=== PATIENT | female | born 1955 | race Caucasian/White ===

== ENCOUNTER 2017-12-11 14:28 | Inpatient (IN) | payer OTHER, MEDICARE ==
[2017-12-11] VITALS (9 sets, daily range): BP systolic 97–148; BP diastolic 40–79
[~2017-12-11] VITALS: Ht 165.1 cm; Wt 65.4 kg
[2017-12-11] MEDS ORDERED: SODIUM CHLORIDE FLUSH 10ML SYR IVF ONE (15:00)
[2017-12-11 15:12] LABS: ALANINE AMINOTRANSFERASE 17 U/L (12-78); ALBUMIN 3.5 g/dL (3.4-5.0); ANION GAP 10 mmol/L (5-15); BASOPHILS # (AUTO) 0.08 x10^3/uL (0-0.1); BASOPHILS % (AUTO) 1 % (0-1); CALCIUM 8.7 mg/dL (8.5-10.1); CHLORIDE 102 mmol/L (98-107); CREATININE 2.31 mg/dL (0.55-1.02); EOSINOPHILS # (AUTO) 0.02 x10^3/uL (0-0.4); EOSINOPHILS % (AUTO) 0 % (1-7); LYMPHOCYTES # (AUTO) 1.45 x10^3/uL (1-3.4); LYMPHOCYTES % (AUTO) 21 % (22-44); MD MORPH REVIEW ONLY; MEAN CORPUSCULAR HEMOGLOBIN 22.3 pg (27.0-34.8); MEAN CORPUSCULAR VOLUME 71.9 fL (80-100); MEAN PLATELET VOLUME 7.9 fL (7.4-10.4); MONOCYTES # (AUTO) 0.38 x10^3/uL (0.2-0.8); MONOCYTES % (AUTO) 6 % (2-9); NEUTROPHILS # (AUTO) 4.98 x10^3/uL (1.8-6.8); NEUTROPHILS % (AUTO) 72 % (42-75); PLATELET COUNT 390 x10^3/uL (130-400); RED BLOOD COUNT 2.99 x10^6/uL (3.82-5.3); RED CELL DISTRIBUTION WIDTH 19.1 % (9.6-15.2)
[2017-12-11 15:16] LABS: ALKALINE PHOSPHATASE 132 U/L (45-117); BILIRUBIN,TOTAL 0.8 mg/dL (0.2-1.0); TOTAL PROTEIN 7.1 g/dL (6.4-8.2); TROPONIN I 0.026 ng/mL (0.000-0.045)
[2017-12-11 15:18] LABS: HEMOGRAM NOTE RECHECKED
[2017-12-11] MEDS ORDERED: ALBUTEROL SULFATE 2.5 MG/3 ML NPPB SCH (15:30)
[2017-12-11 15:33] LABS: ANISOCYTOSIS 1+; HYPOCHROMIA 1+; MICROCYTOSIS 1+
[2017-12-11 15:34] LABS: POLYCHROMASIA 1+
[2017-12-11 15:36] LABS: <PLATELET ESTIMATE> ADEQUATE; LARGE PLATELETS 1+; OVALOCYTES 1+
[2017-12-11] MEDS ORDERED: INSU300I SQ (15:41)
[2017-12-11] MEDS ORDERED: FLUT100B INH (15:41)
[2017-12-11] MEDS ORDERED: ASPI-515 PO (15:41)
[2017-12-11] MEDS ORDERED: FURO-92 PO (15:41)
[2017-12-11] MEDS ORDERED: POLY17PO5 PO (15:41)
[2017-12-11] MEDS ORDERED: INSU100C SQ-INSULIN (15:41)
[2017-12-11] MEDS ORDERED: UMEC1DIS INH (15:41)
[2017-12-11] MEDS ORDERED: POTA10CA PO (15:41)
[2017-12-11] MEDS: ALBUTEROL/IPRATROPIUM 2.5MG/0.5MG, 3 ML HHN SCH ×2 (16:00→22:00)
[2017-12-11] MEDS ORDERED: LABETALOL 5MG/ML, 20ML IVPush PRN (16:00)
[2017-12-11] MEDS: NICOTINE 7 MG/24 HR PATCH.TD24 TD SCH (16:00)
[2017-12-11] MEDS ORDERED: ALBUTEROL SULFATE 2.5 MG/3 ML NPPB PRN (16:00)
[2017-12-11] MEDS: GUAIFENESIN 200 MG TABLET PO SCH ×2 (16:00→20:29)
[2017-12-11] MEDS ORDERED: GLUCAGON 1 MG IM PRN (16:30)
[2017-12-11] MEDS ORDERED: DEXTROSE 4 GM TAB.CHEW PO PRN (16:30)
[2017-12-11 16:31] LABS: INTERNATIONAL NORMALIZED RATIO 1.06 (0.93-1.1)
[2017-12-11 16:48] LABS: T4 (THYROXINE) 8.4 mcg/dL (4.8-13.9)
[2017-12-11 17:23] LABS: FREE T4 (FREE THYROXINE) 1.58 ng/dL (0.76-1.46)
[2017-12-11 17:35] LABS: HEMOGLOBIN A1C 7.8 % (4.2-6.3)
[2017-12-11] MEDS: FUROSEMIDE 40 MG/4 ML IV SCH (17:41)
[2017-12-11 19:50] LABS: TROPONIN I 0.025 ng/mL (0.000-0.045)
[2017-12-11] MEDS: PANTOPROZOLE 40MG TABLET PO SCH (20:29)
[2017-12-11 21:21] LABS: CLOSTRIDIUM DIFFICILE ANTIGEN NEGATIVE; CLOSTRIDIUM DIFFICILE TOXIN NEGATIVE (Negative)
[2017-12-11] MEDS: SODIUM CHLORIDE FLUSH 10ML SYR IVF SCH (21:59)
[2017-12-11] MEDS: INSULIN LISPRO 100 UNITS/ML, PEN SQ-INSULIN SCH (22:00)
[2017-12-11] MEDS: FLUTICASONE NASAL SPRAY 16GM NAS SCH (22:01)
[2017-12-12 00:25] VITALS: BP 120/65
[2017-12-12 02:06] LABS: MEAN CORPUSCULAR HEMOGLOBIN 25.5 pg (27.0-34.8); MEAN CORPUSCULAR HGB CONC 32.5 g/dL (32.4-35.8); MEAN CORPUSCULAR VOLUME 78.4 fL (80-100); MEAN PLATELET VOLUME 7.9 fL (7.4-10.4); PLATELET COUNT 311 x10^3/uL (130-400); RED BLOOD COUNT 3.79 x10^6/uL (3.82-5.3); RED CELL DISTRIBUTION WIDTH 21.1 % (9.6-15.2)
[2017-12-12 02:14] LABS: ALANINE AMINOTRANSFERASE 16 U/L (12-78); ALBUMIN 3.3 g/dL (3.4-5.0); ANION GAP 10 mmol/L (5-15); CALCIUM 8.4 mg/dL (8.5-10.1); CHLORIDE 106 mmol/L (98-107); CREATININE 2.24 mg/dL (0.55-1.02)
[2017-12-12 02:16] LABS: ALKALINE PHOSPHATASE 113 U/L (45-117); BILIRUBIN,TOTAL 1.7 mg/dL (0.2-1.0); TOTAL PROTEIN 6.5 g/dL (6.4-8.2)
[2017-12-12 02:30] LABS: BASOPHILS # (AUTO) 0.01 x10^3/uL (0-0.1); BASOPHILS % (AUTO) 0 % (0-1); EOSINOPHILS % (AUTO) 0 % (1-7); LYMPHOCYTES # (AUTO) 1.08 x10^3/uL (1-3.4); LYMPHOCYTES % (AUTO) 13 % (22-44); MD SCAN; MONOCYTES # (AUTO) 0.64 x10^3/uL (0.2-0.8); MONOCYTES % (AUTO) 8 % (2-9); NEUTROPHILS # (AUTO) 6.57 x10^3/uL (1.8-6.8); NEUTROPHILS % (AUTO) 79 % (42-75)
[2017-12-12] MEDS: ALBUTEROL/IPRATROPIUM 2.5MG/0.5MG, 3 ML HHN SCH ×4 (04:00→21:00)
[2017-12-12 05:54] LABS: MICROSCOPIC AUTO
[2017-12-12] MEDS: GUAIFENESIN 200 MG TABLET PO SCH ×4 (06:00→20:41)
[2017-12-12 06:36] VITALS: BP 115/61
[2017-12-12] MEDS: INSULIN LISPRO 100 UNITS/ML, PEN SQ-INSULIN SCH ×4 (07:00→20:29)
[2017-12-12] MEDS: DEXTROSE 50%, 50ML SYRINGE IVPush PRN ×3 (07:50→23:15)
[2017-12-12] MEDS: PANTOPROZOLE 40MG TABLET PO SCH ×2 (08:52→20:41)
[2017-12-12] MEDS: SODIUM CHLORIDE FLUSH 10ML SYR IVF SCH ×2 (09:00→20:43)
[2017-12-12] MEDS: FUROSEMIDE 40 MG/4 ML IV SCH ×2 (09:08→17:09)
[2017-12-12] MEDS: FLUTICASONE NASAL SPRAY 16GM NAS SCH ×2 (09:09→20:42)
[2017-12-12 09:24] LABS: % IRON SATURATION 49 % (20-55); IRON LEVEL 210 mcg/dL (50-170); TOTAL IRON BINDING CAPACITY 429 mcg/dL (250-450)
[2017-12-12 12:42] VITALS: BP 125/63
[2017-12-12] MEDS: NICOTINE 7 MG/24 HR PATCH.TD24 TD SCH (16:25)
[2017-12-12] MEDS ORDERED: GOLYTELY 4,000ML ORAL.SOL PO ONE (17:00)
[2017-12-12 17:54] VITALS: BP 134/73
[2017-12-12 18:27] LABS: % IRON SATURATION 4 % (20-55); IRON LEVEL 17 mcg/dL (50-170); TOTAL IRON BINDING CAPACITY 469 mcg/dL (250-450)
[2017-12-12 18:56] VITALS: BP 137/56
[2017-12-13 01:26] VITALS: BP 121/69
[2017-12-13] MEDS: ONDANSETRON 2MG/ML, 2ML IVPush PRN ×2 (01:44→16:31)
[2017-12-13] MEDS: DEXTROSE 50%, 50ML SYRINGE IVPush PRN (02:40)
[2017-12-13] MEDS: ALBUTEROL/IPRATROPIUM 2.5MG/0.5MG, 3 ML HHN SCH ×4 (03:19→20:35)
[2017-12-13] MEDS: GUAIFENESIN 200 MG TABLET PO SCH ×4 (05:37→20:10)
[2017-12-13 06:45] VITALS: BP 122/71
[2017-12-13] MEDS: INSULIN LISPRO 100 UNITS/ML, PEN SQ-INSULIN SCH ×4 (07:37→21:25)
[2017-12-13 07:54] VITALS: BP 124/62
[2017-12-13] MEDS ORDERED: IRON SUCROSE COMPLEX 100MG/5ML ONE (07:57)
[2017-12-13] MEDS: PANTOPROZOLE 40MG TABLET PO SCH ×2 (08:00→20:10)
[2017-12-13] MEDS: SODIUM CHLORIDE FLUSH 10ML SYR IVF SCH ×2 (08:01→21:26)
[2017-12-13] MEDS: FUROSEMIDE 40 MG/4 ML IV SCH ×2 (08:01→16:44)
[2017-12-13] MEDS: D5%-0.45% NACL 1,000 ML IV SCH (08:04)
[2017-12-13] MEDS: IRON SUCROSE COMPLEX 100MG/5ML IV SCH (08:05)
[2017-12-13 08:57] LABS: ANION GAP 11 mmol/L (5-15); CALCIUM 8.5 mg/dL (8.5-10.1); CHLORIDE 105 mmol/L (98-107); CREATININE 1.89 mg/dL (0.55-1.02)
[2017-12-13] MEDS: FLUTICASONE NASAL SPRAY 16GM NAS SCH ×2 (11:00→20:11)
[2017-12-13 12:45] VITALS: BP 112/62
[2017-12-13] MEDS ORDERED: PROPOFOL 10 MG/ML, 20ML ONE (13:51)
[2017-12-13] MEDS ORDERED: ALBUTEROL/IPRATROPIUM 2.5MG/0.5MG, 3 ML ONE (14:52)
[2017-12-13] MEDS ORDERED: FENTANYL PF 100 MCG/2ML IV PRN (15:00)
[2017-12-13] MEDS ORDERED: ALBUTEROL/IPRATROPIUM 2.5MG/0.5MG, 3 ML NPPB PRN (15:00)
[2017-12-13] MEDS ORDERED: ONDANSETRON 2MG/ML, 2ML IV PRN (15:00)
[2017-12-13] MEDS: NICOTINE 7 MG/24 HR PATCH.TD24 TD SCH (16:33)
[2017-12-13 19:16] VITALS: BP 103/59
[2017-12-14] MEDS: ONDANSETRON 2MG/ML, 2ML IVPush PRN (00:28)
[2017-12-14 01:49] VITALS: BP 110/65
[2017-12-14] MEDS: ALBUTEROL/IPRATROPIUM 2.5MG/0.5MG, 3 ML HHN SCH ×5 (04:00→19:00)
[2017-12-14] MEDS: D5%-0.45% NACL 1,000 ML IV SCH (04:00)
[2017-12-14 05:04] LABS: ANION GAP 11 mmol/L (5-15); CALCIUM 8.5 mg/dL (8.5-10.1); CHLORIDE 104 mmol/L (98-107); CREATININE 2.26 mg/dL (0.55-1.02)
[2017-12-14 05:13] LABS: MEAN CORPUSCULAR HEMOGLOBIN 25.3 pg (27.0-34.8); MEAN CORPUSCULAR HGB CONC 32.3 g/dL (32.4-35.8); MEAN CORPUSCULAR VOLUME 78.3 fL (80-100); MEAN PLATELET VOLUME 8.4 fL (7.4-10.4); PLATELET COUNT 251 x10^3/uL (130-400); RED BLOOD COUNT 3.47 x10^6/uL (3.82-5.3); RED CELL DISTRIBUTION WIDTH 22.3 % (9.6-15.2)
[2017-12-14] MEDS: GUAIFENESIN 200 MG TABLET PO SCH ×4 (05:45→21:28)
[2017-12-14 05:52] LABS: BASOPHILS # (AUTO) 0.03 x10^3/uL (0-0.1); BASOPHILS % (AUTO) 0 % (0-1); EOSINOPHILS % (AUTO) 0 % (1-7); LYMPHOCYTES # (AUTO) 0.52 x10^3/uL (1-3.4); LYMPHOCYTES % (AUTO) 6 % (22-44); MD SCAN; MONOCYTES # (AUTO) 0.45 x10^3/uL (0.2-0.8); MONOCYTES % (AUTO) 5 % (2-9); NEUTROPHILS # (AUTO) 7.38 x10^3/uL (1.8-6.8); NEUTROPHILS % (AUTO) 88 % (42-75)
[2017-12-14] MEDS: INSULIN LISPRO 100 UNITS/ML, PEN SQ-INSULIN SCH ×4 (07:00→21:28)
[2017-12-14 08:02] VITALS: BP 114/65
[2017-12-14] MEDS: PANTOPROZOLE 40MG TABLET PO SCH ×2 (08:09→21:28)
[2017-12-14] MEDS: POTASSIUM CHLORIDE 20 MEQ TAB.ER.PRT PO SCH ×2 (08:09→16:24)
[2017-12-14] MEDS: SODIUM CHLORIDE FLUSH 10ML SYR IVF SCH ×2 (08:10→21:28)
[2017-12-14] MEDS: IRON SUCROSE COMPLEX 100MG/5ML IV SCH (08:10)
[2017-12-14] MEDS: FUROSEMIDE 40 MG/4 ML IV SCH (08:10)
[2017-12-14] MEDS: FLUTICASONE NASAL SPRAY 16GM NAS SCH ×2 (08:10→21:27)
[2017-12-14 14:39] VITALS: BP 109/69
[2017-12-14] MEDS: NICOTINE 7 MG/24 HR PATCH.TD24 TD SCH (16:00)
[2017-12-14 20:09] VITALS: BP 110/69
[2017-12-15 02:22] VITALS: BP 117/67
[2017-12-15] MEDS: ALBUTEROL/IPRATROPIUM 2.5MG/0.5MG, 3 ML HHN SCH ×3 (03:28→21:18)
[2017-12-15 06:11] LABS: MEAN CORPUSCULAR HEMOGLOBIN 25.5 pg (27.0-34.8); MEAN CORPUSCULAR HGB CONC 31.7 g/dL (32.4-35.8); MEAN CORPUSCULAR VOLUME 80.3 fL (80-100); MEAN PLATELET VOLUME 8.6 fL (7.4-10.4); PLATELET COUNT 241 x10^3/uL (130-400); RED BLOOD COUNT 3.69 x10^6/uL (3.82-5.3); RED CELL DISTRIBUTION WIDTH 23.5 % (9.6-15.2)
[2017-12-15] MEDS: GUAIFENESIN 200 MG TABLET PO SCH ×4 (06:11→21:42)
[2017-12-15 06:20] LABS: CHLORIDE 102 mmol/L (98-107)
[2017-12-15 06:25] LABS: ALANINE AMINOTRANSFERASE 23 U/L (12-78); ALBUMIN 3.3 g/dL (3.4-5.0); ALKALINE PHOSPHATASE 130 U/L (45-117); ANION GAP 8 mmol/L (5-15); BILIRUBIN,TOTAL 1.1 mg/dL (0.2-1.0); CALCIUM 8.9 mg/dL (8.5-10.1); CREATINE KINASE, TOTAL 109 U/L (26-192); CREATININE 2.94 mg/dL (0.55-1.02); TOTAL PROTEIN 6.6 g/dL (6.4-8.2)
[2017-12-15 07:18] LABS: BASOPHILS # (AUTO) 0.01 x10^3/uL (0-0.1); BASOPHILS % (AUTO) 0 % (0-1); EOSINOPHILS # (AUTO) 0.02 x10^3/uL (0-0.4); EOSINOPHILS % (AUTO) 0 % (1-7); LYMPHOCYTES # (AUTO) 0.69 x10^3/uL (1-3.4); LYMPHOCYTES % (AUTO) 7 % (22-44); MD MORPH REVIEW ONLY; MONOCYTES % (AUTO) 4 % (2-9); NEUTROPHILS # (AUTO) 9.25 x10^3/uL (1.8-6.8); NEUTROPHILS % (AUTO) 89 % (42-75)
[2017-12-15 07:25] LABS: ANISOCYTOSIS 2+; MICROCYTOSIS 1+
[2017-12-15 07:26] LABS: <PLATELET ESTIMATE> ADEQUATE; <PLT MORPHOLOGY> NORMAL PLT MORPH; HYPOCHROMIA 1+; OVALOCYTES 1+; POLYCHROMASIA 1+
[2017-12-15 07:40] VITALS: BP 113/63
[2017-12-15 08:38] LABS: MICROSCOPIC INDICATED
[2017-12-15] MEDS: SODIUM CHLORIDE FLUSH 10ML SYR IVF SCH ×2 (09:00→21:42)
[2017-12-15] MEDS: INSULIN LISPRO 100 UNITS/ML, PEN SQ-INSULIN SCH ×4 (09:05→21:43)
[2017-12-15] MEDS: PANTOPROZOLE 40MG TABLET PO SCH ×2 (09:05→21:42)
[2017-12-15] MEDS: IRON SUCROSE COMPLEX 100MG/5ML IV SCH (09:05)
[2017-12-15] MEDS: FLUTICASONE NASAL SPRAY 16GM NAS SCH ×2 (09:05→21:42)
[2017-12-15] MEDS: NICOTINE 7 MG/24 HR PATCH.TD24 TD SCH (12:10)
[2017-12-15 14:14] VITALS: BP 116/70
[2017-12-15 15:23] VITALS: BP 123/70
[2017-12-15 19:45] VITALS: BP 113/69
[2017-12-16 01:30] VITALS: BP 141/67
[2017-12-16] MEDS: ONDANSETRON 2MG/ML, 2ML IVPush PRN (01:54)
[2017-12-16] MEDS: ALBUTEROL/IPRATROPIUM 2.5MG/0.5MG, 3 ML HHN SCH ×4 (03:24→22:00)
[2017-12-16] MEDS: GUAIFENESIN 200 MG TABLET PO SCH ×4 (06:30→20:10)
[2017-12-16 08:44] LABS: ALBUMIN 3.2 g/dL (3.4-5.0); ANION GAP 14 mmol/L (5-15); CALCIUM 8.8 mg/dL (8.5-10.1); CHLORIDE 101 mmol/L (98-107); CREATININE 2.88 mg/dL (0.55-1.02)
[2017-12-16] MEDS: SODIUM CHLORIDE FLUSH 10ML SYR IVF SCH ×2 (09:00→20:11)
[2017-12-16 09:20] VITALS: BP 117/69
[2017-12-16] MEDS: PANTOPROZOLE 40MG TABLET PO SCH ×2 (09:27→20:10)
[2017-12-16] MEDS: IRON SUCROSE COMPLEX 100MG/5ML IV SCH (09:27)
[2017-12-16] MEDS: FLUTICASONE NASAL SPRAY 16GM NAS SCH ×3 (09:29→20:15)
[2017-12-16 13:10] VITALS: BP 136/77
[2017-12-16] MEDS: INSULIN LISPRO 100 UNITS/ML, PEN SQ-INSULIN SCH ×3 (14:14→20:02)
[2017-12-16] MEDS: NICOTINE 7 MG/24 HR PATCH.TD24 TD SCH (17:39)
[2017-12-16 20:25] VITALS: BP 138/77
[2017-12-17] MEDS: INSULIN LISPRO 100 UNITS/ML, PEN SQ-INSULIN SCH ×4 (02:39→20:21)
[2017-12-17] MEDS: ALBUTEROL/IPRATROPIUM 2.5MG/0.5MG, 3 ML HHN SCH ×4 (03:05→21:13)
[2017-12-17 03:45] VITALS: BP 128/76
[2017-12-17 05:06] LABS: MEAN CORPUSCULAR HEMOGLOBIN 26.1 pg (27.0-34.8); MEAN CORPUSCULAR HGB CONC 32.2 g/dL (32.4-35.8); MEAN CORPUSCULAR VOLUME 81.1 fL (80-100); MEAN PLATELET VOLUME 8.8 fL (7.4-10.4); PLATELET COUNT 226 x10^3/uL (130-400); RED BLOOD COUNT 3.69 x10^6/uL (3.82-5.3); RED CELL DISTRIBUTION WIDTH 24.7 % (9.6-15.2)
[2017-12-17 05:16] LABS: ALBUMIN 3.3 g/dL (3.4-5.0); ANION GAP 9 mmol/L (5-15); CALCIUM 8.7 mg/dL (8.5-10.1); CHLORIDE 100 mmol/L (98-107)
[2017-12-17 05:21] LABS: ALANINE AMINOTRANSFERASE 30 U/L (12-78); ALKALINE PHOSPHATASE 145 U/L (45-117); BILIRUBIN,TOTAL 0.9 mg/dL (0.2-1.0); CREATININE 2.59 mg/dL (0.55-1.02); TOTAL PROTEIN 6.6 g/dL (6.4-8.2)
[2017-12-17 05:46] LABS: BASOPHILS % (AUTO) 0 % (0-1); EOSINOPHILS # (AUTO) 0.02 x10^3/uL (0-0.4); EOSINOPHILS % (AUTO) 0 % (1-7); LYMPHOCYTES # (AUTO) 0.67 x10^3/uL (1-3.4); LYMPHOCYTES % (AUTO) 7 % (22-44); MD SCAN; MONOCYTES # (AUTO) 0.49 x10^3/uL (0.2-0.8); MONOCYTES % (AUTO) 5 % (2-9); NEUTROPHILS # (AUTO) 7.89 x10^3/uL (1.8-6.8); NEUTROPHILS % (AUTO) 87 % (42-75)
[2017-12-17] MEDS: GUAIFENESIN 200 MG TABLET PO SCH ×4 (05:59→20:14)
[2017-12-17 07:53] VITALS: BP 121/62
[2017-12-17] MEDS: SODIUM CHLORIDE FLUSH 10ML SYR IVF SCH ×2 (08:43→20:23)
[2017-12-17] MEDS: IRON SUCROSE COMPLEX 100MG/5ML IV SCH (08:43)
[2017-12-17] MEDS: FLUTICASONE NASAL SPRAY 16GM NAS SCH ×2 (08:43→20:15)
[2017-12-17] MEDS: PANTOPROZOLE 40MG TABLET PO SCH ×2 (08:44→20:14)
[2017-12-17] MEDS: ONDANSETRON 2MG/ML, 2ML IVPush PRN ×2 (11:40→17:35)
[2017-12-17 14:28] VITALS: BP 124/72
[2017-12-17] MEDS: NICOTINE 7 MG/24 HR PATCH.TD24 TD SCH (16:00)
[2017-12-17 21:07] VITALS: BP 117/70
[2017-12-18 01:16] VITALS: BP 104/66
[2017-12-18] MEDS: ONDANSETRON 2MG/ML, 2ML IVPush PRN ×2 (02:39→08:34)
[2017-12-18] MEDS: ALBUTEROL/IPRATROPIUM 2.5MG/0.5MG, 3 ML HHN SCH ×3 (03:24→19:06)
[2017-12-18 05:08] LABS: MEAN CORPUSCULAR HEMOGLOBIN 26.2 pg (27.0-34.8); MEAN CORPUSCULAR HGB CONC 31.7 g/dL (32.4-35.8); MEAN CORPUSCULAR VOLUME 82.7 fL (80-100); MEAN PLATELET VOLUME 8.6 fL (7.4-10.4); PLATELET COUNT 205 x10^3/uL (130-400); RED BLOOD COUNT 3.58 x10^6/uL (3.82-5.3); RED CELL DISTRIBUTION WIDTH 24.4 % (9.6-15.2)
[2017-12-18 05:19] LABS: ALBUMIN 3.1 g/dL (3.4-5.0); ANION GAP 9 mmol/L (5-15); CALCIUM 8.7 mg/dL (8.5-10.1); CHLORIDE 103 mmol/L (98-107); CREATININE 2.72 mg/dL (0.55-1.02)
[2017-12-18 05:55] LABS: BASOPHILS # (AUTO) 0.02 x10^3/uL (0-0.1); BASOPHILS % (AUTO) 0 % (0-1); EOSINOPHILS # (AUTO) 0.03 x10^3/uL (0-0.4); EOSINOPHILS % (AUTO) 0 % (1-7); LYMPHOCYTES % (AUTO) 11 % (22-44); MD SCAN; MONOCYTES # (AUTO) 0.48 x10^3/uL (0.2-0.8); MONOCYTES % (AUTO) 6 % (2-9); NEUTROPHILS # (AUTO) 6.48 x10^3/uL (1.8-6.8); NEUTROPHILS % (AUTO) 82 % (42-75)
[2017-12-18] MEDS: GUAIFENESIN 200 MG TABLET PO SCH ×4 (06:04→21:07)
[2017-12-18] MEDS: INSULIN LISPRO 100 UNITS/ML, PEN SQ-INSULIN SCH ×4 (07:00→21:21)
[2017-12-18 07:56] VITALS: BP 98/59
[2017-12-18] MEDS: FLUTICASONE NASAL SPRAY 16GM NAS SCH ×2 (08:33→21:07)
[2017-12-18] MEDS: IRON SUCROSE COMPLEX 100MG/5ML IV SCH (08:33)
[2017-12-18] MEDS: PANTOPROZOLE 40MG TABLET PO SCH (08:33)
[2017-12-18] MEDS: SODIUM CHLORIDE FLUSH 10ML SYR IVF SCH ×2 (08:34→21:08)
[2017-12-18] MEDS ORDERED: ALBUTEROL/IPRATROPIUM 2.5MG/0.5MG, 3 ML HHN PRN (12:00)
[2017-12-18 13:47] VITALS: BP 105/63
[2017-12-18] MEDS: NICOTINE 7 MG/24 HR PATCH.TD24 TD SCH (16:00)
[2017-12-18] MEDS ORDERED: ALBUTEROL/IPRATROPIUM 2.5MG/0.5MG, 3 ML ONE (18:04)
[2017-12-18 21:56] VITALS: BP 109/61
[2017-12-19 01:16] VITALS: BP 114/70
[2017-12-19] MEDS: GUAIFENESIN 200 MG TABLET PO SCH ×4 (05:28→20:43)
[2017-12-19 08:00] VITALS: BP 137/74
[2017-12-19 08:00] LABS: MEAN CORPUSCULAR HGB CONC 31.6 g/dL (32.4-35.8); MEAN CORPUSCULAR VOLUME 82.1 fL (80-100); MEAN PLATELET VOLUME 8.6 fL (7.4-10.4); PLATELET COUNT 212 x10^3/uL (130-400); RED BLOOD COUNT 3.81 x10^6/uL (3.82-5.3)
[2017-12-19 08:12] LABS: ALBUMIN 3.3 g/dL (3.4-5.0); ANION GAP 12 mmol/L (5-15); CALCIUM 8.7 mg/dL (8.5-10.1); CHLORIDE 103 mmol/L (98-107); CREATININE 2.69 mg/dL (0.55-1.02)
[2017-12-19 08:32] LABS: BASOPHILS # (AUTO) 0.09 x10^3/uL (0-0.1); BASOPHILS % (AUTO) 1 % (0-1); EOSINOPHILS % (AUTO) 0 % (1-7); LYMPHOCYTES # (AUTO) 1.06 x10^3/uL (1-3.4); LYMPHOCYTES % (AUTO) 14 % (22-44); MD SCAN; MONOCYTES # (AUTO) 0.52 x10^3/uL (0.2-0.8); MONOCYTES % (AUTO) 7 % (2-9); NEUTROPHILS % (AUTO) 79 % (42-75)
[2017-12-19] MEDS: SODIUM CHLORIDE FLUSH 10ML SYR IVF SCH ×2 (08:32→20:47)
[2017-12-19] MEDS: FLUTICASONE NASAL SPRAY 16GM NAS SCH ×2 (08:32→20:44)
[2017-12-19] MEDS: INSULIN LISPRO 100 UNITS/ML, PEN SQ-INSULIN SCH ×4 (08:32→20:43)
[2017-12-19 08:33] LABS: RED CELL DISTRIBUTION WIDTH 26.6 % (9.6-15.2)
[2017-12-19] MEDS: PANTOPROZOLE 40MG TABLET PO SCH (08:33)
[2017-12-19] MEDS: INSULIN GLARGINE 100 UNITS/ML, PEN SQ-INSULIN SCH (08:33)
[2017-12-19] MEDS: ALBUTEROL/IPRATROPIUM 2.5MG/0.5MG, 3 ML HHN SCH ×2 (09:10→20:59)
[2017-12-19] MEDS: IRON SUCROSE COMPLEX 100MG/5ML IV SCH (12:53)
[2017-12-19 13:33] VITALS: BP 115/65
[2017-12-19] MEDS: NICOTINE 7 MG/24 HR PATCH.TD24 TD SCH (16:00)
[2017-12-19] MEDS ORDERED: SODIUM BICARB 8.4%,50ML SYR. 150 MEQ in DEXTROSE 5% 1,000 ML IV SCH (16:24)
[2017-12-19 20:23] VITALS: BP 117/77
[2017-12-20 01:03] VITALS: BP 125/67
[2017-12-20 05:18] LABS: MEAN CORPUSCULAR HEMOGLOBIN 26.3 pg (27.0-34.8); MEAN CORPUSCULAR HGB CONC 31.5 g/dL (32.4-35.8); MEAN CORPUSCULAR VOLUME 83.6 fL (80-100); MEAN PLATELET VOLUME 8.6 fL (7.4-10.4); PLATELET COUNT 189 x10^3/uL (130-400); RED BLOOD COUNT 3.68 x10^6/uL (3.82-5.3)
[2017-12-20 05:19] LABS: RED CELL DISTRIBUTION WIDTH 27.5 % (9.6-15.2)
[2017-12-20 05:22] LABS: ALBUMIN 3.2 g/dL (3.4-5.0); ANION GAP 9 mmol/L (5-15); CALCIUM 8.5 mg/dL (8.5-10.1); CHLORIDE 104 mmol/L (98-107); CREATININE 2.39 mg/dL (0.55-1.02)
[2017-12-20 05:48] LABS: ANISOCYTOSIS 2+; BASOPHILS # (AUTO) 0.02 x10^3/uL (0-0.1); BASOPHILS % (AUTO) 0 % (0-1); EOSINOPHILS # (AUTO) 0.05 x10^3/uL (0-0.4); EOSINOPHILS % (AUTO) 1 % (1-7); LYMPHOCYTES # (AUTO) 1.06 x10^3/uL (1-3.4); LYMPHOCYTES % (AUTO) 16 % (22-44); MD MORPH REVIEW ONLY; MONOCYTES # (AUTO) 0.41 x10^3/uL (0.2-0.8); MONOCYTES % (AUTO) 6 % (2-9); NEUTROPHILS # (AUTO) 5.13 x10^3/uL (1.8-6.8); NEUTROPHILS % (AUTO) 77 % (42-75); POLYCHROMASIA 1+
[2017-12-20 05:51] LABS: <PLATELET ESTIMATE> ADEQUATE; <PLT MORPHOLOGY> NORMAL PLT MORPH
[2017-12-20] MEDS: GUAIFENESIN 200 MG TABLET PO SCH ×4 (06:09→21:00)
[2017-12-20 06:40] VITALS: BP 124/75
[2017-12-20] MEDS: INSULIN LISPRO 100 UNITS/ML, PEN SQ-INSULIN SCH ×4 (08:11→21:00)
[2017-12-20] MEDS: IRON SUCROSE COMPLEX 100MG/5ML IV SCH ×2 (08:38→12:19)
[2017-12-20] MEDS: PANTOPROZOLE 40MG TABLET PO SCH (08:38)
[2017-12-20] MEDS: SODIUM CHLORIDE FLUSH 10ML SYR IVF SCH ×2 (08:39→21:00)
[2017-12-20] MEDS: ALBUTEROL/IPRATROPIUM 2.5MG/0.5MG, 3 ML HHN SCH (09:00)
[2017-12-20] MEDS ORDERED: FENTANYL PF 100 MCG/2ML ONE (10:14)
[2017-12-20] MEDS ORDERED: VERAPAMIL 2.5 MG/ML, 2ML ONE (10:14)
[2017-12-20] MEDS ORDERED: HEPARIN 1,000 UNITS/ML, 10ML ONE (10:15)
[2017-12-20] MEDS ORDERED: MIDAZOLAM 1 MG/ML, 2ML ONE (10:15)
[2017-12-20] MEDS ORDERED: BIVALIRUDIN 250 MG ONE (10:15)
[2017-12-20] MEDS ORDERED: NITROGLYCERIN 5 MG/ML, 10ML ONE (10:15)
[2017-12-20] MEDS ORDERED: LIDOCAINE-MPF 2%, 2ML ONE (10:37)
[2017-12-20] MEDS: FLUTICASONE NASAL SPRAY 16GM NAS SCH ×2 (12:19→21:00)
[2017-12-20] MEDS: INSULIN GLARGINE 100 UNITS/ML, PEN SQ-INSULIN SCH (12:19)
[2017-12-20 14:14] VITALS: BP 131/73
[2017-12-20] MEDS: NICOTINE 7 MG/24 HR PATCH.TD24 TD SCH ×2 (16:00→17:19)
[2017-12-20] MEDS ORDERED: ALBUTEROL/IPRATROPIUM 2.5MG/0.5MG, 3 ML HHN PRN (16:30)
[2017-12-20 20:25] VITALS: BP 111/67
[2017-12-21 02:40] VITALS: BP 111/64
[2017-12-21] MEDS: GUAIFENESIN 200 MG TABLET PO SCH ×4 (06:11→21:32)
[2017-12-21] MEDS: INSULIN LISPRO 100 UNITS/ML, PEN SQ-INSULIN SCH ×4 (07:00→21:31)
[2017-12-21 07:01] LABS: MEAN CORPUSCULAR HEMOGLOBIN 26.2 pg (27.0-34.8); MEAN CORPUSCULAR HGB CONC 30.7 g/dL (32.4-35.8); MEAN CORPUSCULAR VOLUME 85.2 fL (80-100); MEAN PLATELET VOLUME 8.3 fL (7.4-10.4); PLATELET COUNT 185 x10^3/uL (130-400); RED BLOOD COUNT 3.78 x10^6/uL (3.82-5.3); RED CELL DISTRIBUTION WIDTH 30.5 % (9.6-15.2)
[2017-12-21 07:06] LABS: ALBUMIN 3.1 g/dL (3.4-5.0); ANION GAP 10 mmol/L (5-15); CALCIUM 8.4 mg/dL (8.5-10.1); CHLORIDE 109 mmol/L (98-107)
[2017-12-21 07:31] LABS: MD YES
[2017-12-21 07:34] LABS: ANISOCYTOSIS 2+; EOS#(MANUAL) 0.07 x10^3/uL (0.0-0.4); EOS% (MANUAL) 1 % (1-7); LYMPH#(MANUAL) 0.78 x10^3/uL (1-3.4); LYMPHS% (MANUAL) 12 % (22-44); MONOS#(MANUAL) 0.59 x10^3/uL (0.3-2.7); MONOS% (MANUAL) 9 % (2-9); NRBC % (MANUAL) 2 % (0-1); SEG#(MANUAL) 5.07 x10^3/uL (1.8-6.8); SEGS% (MANUAL) 78 % (42-75)
[2017-12-21 07:35] LABS: <PLATELET ESTIMATE> ADEQUATE; <PLT MORPHOLOGY> NORMAL PLT MORPH; POLYCHROMASIA 1+
[2017-12-21 07:36] VITALS: BP 107/58
[2017-12-21] MEDS: IRON SUCROSE COMPLEX 100MG/5ML IV SCH (07:47)
[2017-12-21] MEDS: INSULIN GLARGINE 100 UNITS/ML, PEN SQ-INSULIN SCH (09:00)
[2017-12-21] MEDS: PANTOPROZOLE 40MG TABLET PO SCH (09:12)
[2017-12-21] MEDS: FLUTICASONE NASAL SPRAY 16GM NAS SCH ×2 (09:12→21:32)
[2017-12-21] MEDS: SODIUM CHLORIDE FLUSH 10ML SYR IVF SCH ×2 (09:12→21:32)
[2017-12-21] MEDS ORDERED: POTASSIUM CHLORIDE 20 MEQ TAB.ER.PRT PO ONE (10:00)
[2017-12-21] MEDS ORDERED: FUROSEMIDE 40 MG/4 ML IV ONE (10:00)
[2017-12-21 14:21] VITALS: BP 129/70
[2017-12-21] MEDS: NICOTINE 7 MG/24 HR PATCH.TD24 TD SCH (16:00)
[2017-12-21 20:29] VITALS: BP 115/66
[2017-12-22 02:34] VITALS: BP 130/73
[2017-12-22] MEDS: ALBUTEROL/IPRATROPIUM 2.5MG/0.5MG, 3 ML NPPB PRN ×3 (02:42→22:32)
[2017-12-22 05:10] LABS: MEAN CORPUSCULAR HEMOGLOBIN 26.6 pg (27.0-34.8); MEAN CORPUSCULAR HGB CONC 31.2 g/dL (32.4-35.8); MEAN CORPUSCULAR VOLUME 85.3 fL (80-100); MEAN PLATELET VOLUME 8.4 fL (7.4-10.4); PLATELET COUNT 203 x10^3/uL (130-400); RED CELL DISTRIBUTION WIDTH 30.9 % (9.6-15.2)
[2017-12-22 05:20] LABS: ALBUMIN 3.4 g/dL (3.4-5.0); CALCIUM 8.7 mg/dL (8.5-10.1); CHLORIDE 108 mmol/L (98-107)
[2017-12-22 05:23] LABS: ANION GAP 9 mmol/L (5-15); CREATININE 2.19 mg/dL (0.55-1.02)
[2017-12-22 05:33] LABS: BASOPHILS # (AUTO) 0.03 x10^3/uL (0-0.1); BASOPHILS % (AUTO) 0 % (0-1); EOSINOPHILS # (AUTO) 0.06 x10^3/uL (0-0.4); EOSINOPHILS % (AUTO) 1 % (1-7); LYMPHOCYTES # (AUTO) 1.01 x10^3/uL (1-3.4); LYMPHOCYTES % (AUTO) 15 % (22-44); MD SCAN; MONOCYTES % (AUTO) 6 % (2-9); NEUTROPHILS # (AUTO) 5.27 x10^3/uL (1.8-6.8); NEUTROPHILS % (AUTO) 78 % (42-75)
[2017-12-22] MEDS: GUAIFENESIN 200 MG TABLET PO SCH ×4 (06:01→21:10)
[2017-12-22] MEDS: FLUTICASONE NASAL SPRAY 16GM NAS SCH ×2 (06:04→20:37)
[2017-12-22 07:10] VITALS: BP 150/77
[2017-12-22] MEDS ORDERED: FUROSEMIDE 20 MG/2 ML IV ONE (08:00)
[2017-12-22] MEDS: FERROUS SULFATE 325 MG TABLET PO SCH (08:12)
[2017-12-22] MEDS: PANTOPROZOLE 40MG TABLET PO SCH (08:12)
[2017-12-22] MEDS: SODIUM CHLORIDE FLUSH 10ML SYR IVF SCH ×2 (08:13→20:37)
[2017-12-22] MEDS: INSULIN LISPRO 100 UNITS/ML, PEN SQ-INSULIN SCH ×4 (08:17→21:11)
[2017-12-22] MEDS: INSULIN GLARGINE 100 UNITS/ML, PEN SQ-INSULIN SCH (08:20)
[2017-12-22 12:50] VITALS: BP 125/73
[2017-12-22] MEDS: NICOTINE 7 MG/24 HR PATCH.TD24 TD SCH (16:33)
[2017-12-22 18:57] VITALS: BP 122/70
[2017-12-23 01:55] VITALS: BP 114/70
[2017-12-23] MEDS: GUAIFENESIN 200 MG TABLET PO SCH ×4 (05:28→21:07)
[2017-12-23] MEDS ORDERED: FUROSEMIDE 20 MG/2 ML IV ONE (07:30)
[2017-12-23] MEDS: FLUTICASONE NASAL SPRAY 16GM NAS SCH ×2 (08:08→21:25)
[2017-12-23] MEDS: PANTOPROZOLE 40MG TABLET PO SCH (08:09)
[2017-12-23] MEDS: FERROUS SULFATE 325 MG TABLET PO SCH (08:09)
[2017-12-23] MEDS: INSULIN LISPRO 100 UNITS/ML, PEN SQ-INSULIN SCH ×4 (08:10→21:25)
[2017-12-23] MEDS: SODIUM CHLORIDE FLUSH 10ML SYR IVF SCH ×2 (08:10→21:08)
[2017-12-23 08:13] VITALS: BP 133/71
[2017-12-23] MEDS: ALBUTEROL/IPRATROPIUM 2.5MG/0.5MG, 3 ML NPPB PRN (08:56)
[2017-12-23] MEDS: INSULIN GLARGINE 100 UNITS/ML, PEN SQ-INSULIN SCH (13:03)
[2017-12-23] MEDS: ALBUTEROL/IPRATROPIUM 2.5MG/0.5MG, 3 ML NPPB SCH ×3 (13:14→20:00)
[2017-12-23 14:41] VITALS: BP 128/66
[2017-12-23] MEDS: NICOTINE 7 MG/24 HR PATCH.TD24 TD SCH (16:39)
[2017-12-23 19:06] VITALS: BP 123/64
[2017-12-23 19:27] VITALS: BP 112/61
[2017-12-24 04:00] VITALS: BP 132/74
[2017-12-24 05:16] LABS: ALBUMIN 3.1 g/dL (3.4-5.0); ANION GAP 7 mmol/L (5-15); CALCIUM 8.8 mg/dL (8.5-10.1); CHLORIDE 108 mmol/L (98-107)
[2017-12-24 05:28] LABS: MEAN CORPUSCULAR HEMOGLOBIN 26.5 pg (27.0-34.8); MEAN CORPUSCULAR HGB CONC 30.9 g/dL (32.4-35.8); MEAN CORPUSCULAR VOLUME 85.9 fL (80-100); MEAN PLATELET VOLUME 8.4 fL (7.4-10.4); PLATELET COUNT 231 x10^3/uL (130-400); RED BLOOD COUNT 3.96 x10^6/uL (3.82-5.3); RED CELL DISTRIBUTION WIDTH 31.4 % (9.6-15.2)
[2017-12-24 05:46] LABS: BASOPHILS # (AUTO) 0.02 x10^3/uL (0-0.1); BASOPHILS % (AUTO) 0 % (0-1); EOSINOPHILS # (AUTO) 0.05 x10^3/uL (0-0.4); EOSINOPHILS % (AUTO) 1 % (1-7); LYMPHOCYTES # (AUTO) 0.84 x10^3/uL (1-3.4); LYMPHOCYTES % (AUTO) 12 % (22-44); MD SCAN; MONOCYTES # (AUTO) 0.43 x10^3/uL (0.2-0.8); MONOCYTES % (AUTO) 6 % (2-9); NEUTROPHILS % (AUTO) 80 % (42-75)
[2017-12-24] MEDS: GUAIFENESIN 200 MG TABLET PO SCH ×4 (06:27→21:38)
[2017-12-24 07:00] VITALS: BP 127/70
[2017-12-24] MEDS: ALBUTEROL/IPRATROPIUM 2.5MG/0.5MG, 3 ML NPPB SCH ×4 (07:30→19:38)
[2017-12-24] MEDS: FERROUS SULFATE 325 MG TABLET PO SCH (08:15)
[2017-12-24] MEDS: PANTOPROZOLE 40MG TABLET PO SCH (08:15)
[2017-12-24] MEDS: FLUTICASONE NASAL SPRAY 16GM NAS SCH (08:15)
[2017-12-24] MEDS: SODIUM CHLORIDE FLUSH 10ML SYR IVF SCH ×2 (08:16→21:40)
[2017-12-24] MEDS: INSULIN GLARGINE 100 UNITS/ML, PEN SQ-INSULIN SCH (08:17)
[2017-12-24] MEDS: INSULIN LISPRO 100 UNITS/ML, PEN SQ-INSULIN SCH ×4 (08:17→21:39)
[2017-12-24 14:08] VITALS: BP 117/69
[2017-12-24] MEDS: NICOTINE 7 MG/24 HR PATCH.TD24 TD SCH (16:00)
[2017-12-24 18:43] VITALS: BP 116/66
[2017-12-24] MEDS: SIMETHICONE 125 MG CHEW TAB PO SCH (21:38)
[2017-12-25] MEDS: FLUTICASONE NASAL SPRAY 16GM NAS SCH ×3 (00:58→20:37)
[2017-12-25 01:12] VITALS: BP 125/65
[2017-12-25] MEDS ORDERED: FUROSEMIDE 20 MG/2 ML IV ONE (04:00)
[2017-12-25 05:17] LABS: ALBUMIN 2.9 g/dL (3.4-5.0); ANION GAP 4 mmol/L (5-15); CALCIUM 8.6 mg/dL (8.5-10.1); CHLORIDE 110 mmol/L (98-107); CREATININE 1.76 mg/dL (0.55-1.02)
[2017-12-25 05:21] LABS: MEAN CORPUSCULAR HEMOGLOBIN 26.9 pg (27.0-34.8); MEAN CORPUSCULAR HGB CONC 31.1 g/dL (32.4-35.8); MEAN CORPUSCULAR VOLUME 86.7 fL (80-100); MEAN PLATELET VOLUME 8.4 fL (7.4-10.4); PLATELET COUNT 227 x10^3/uL (130-400); RED BLOOD COUNT 3.67 x10^6/uL (3.82-5.3); RED CELL DISTRIBUTION WIDTH 31.4 % (9.6-15.2)
[2017-12-25 06:02] LABS: BASOPHILS # (AUTO) 0.02 x10^3/uL (0-0.1); BASOPHILS % (AUTO) 0 % (0-1); EOSINOPHILS # (AUTO) 0.08 x10^3/uL (0-0.4); EOSINOPHILS % (AUTO) 1 % (1-7); LYMPHOCYTES # (AUTO) 0.84 x10^3/uL (1-3.4); LYMPHOCYTES % (AUTO) 13 % (22-44); MD SCAN; MONOCYTES # (AUTO) 0.46 x10^3/uL (0.2-0.8); MONOCYTES % (AUTO) 7 % (2-9); NEUTROPHILS # (AUTO) 5.08 x10^3/uL (1.8-6.8); NEUTROPHILS % (AUTO) 78 % (42-75)
[2017-12-25] MEDS: GUAIFENESIN 200 MG TABLET PO SCH ×4 (06:14→20:37)
[2017-12-25] MEDS: ALBUTEROL/IPRATROPIUM 2.5MG/0.5MG, 3 ML NPPB SCH ×5 (07:10→22:50)
[2017-12-25] MEDS: PANTOPROZOLE 40MG TABLET PO SCH (08:04)
[2017-12-25] MEDS: SIMETHICONE 125 MG CHEW TAB PO SCH ×4 (08:04→20:37)
[2017-12-25] MEDS: SODIUM CHLORIDE FLUSH 10ML SYR IVF SCH ×2 (08:05→20:37)
[2017-12-25] MEDS: FERROUS SULFATE 325 MG TABLET PO SCH (08:28)
[2017-12-25] MEDS: INSULIN GLARGINE 100 UNITS/ML, PEN SQ-INSULIN SCH (08:29)
[2017-12-25] MEDS: INSULIN LISPRO 100 UNITS/ML, PEN SQ-INSULIN SCH ×4 (08:29→20:37)
[2017-12-25 08:48] VITALS: BP 110/66
[2017-12-25 14:40] VITALS: BP 112/62
[2017-12-25] MEDS: NICOTINE 7 MG/24 HR PATCH.TD24 TD SCH (16:00)
[2017-12-25 19:45] VITALS: BP 122/70
[2017-12-26 04:00] VITALS: BP 145/74
[2017-12-26 05:44] LABS: MEAN CORPUSCULAR HEMOGLOBIN 26.2 pg (27.0-34.8); MEAN CORPUSCULAR HGB CONC 30.2 g/dL (32.4-35.8); MEAN CORPUSCULAR VOLUME 86.7 fL (80-100); MEAN PLATELET VOLUME 8.7 fL (7.4-10.4); PLATELET COUNT 254 x10^3/uL (130-400); RED BLOOD COUNT 3.89 x10^6/uL (3.82-5.3); RED CELL DISTRIBUTION WIDTH 31.3 % (9.6-15.2)
[2017-12-26] MEDS: GUAIFENESIN 200 MG TABLET PO SCH ×4 (05:47→21:39)
[2017-12-26 05:48] LABS: ANION GAP 7 mmol/L (5-15); CALCIUM 8.6 mg/dL (8.5-10.1); CHLORIDE 109 mmol/L (98-107)
[2017-12-26 05:49] LABS: CREATININE 1.93 mg/dL (0.55-1.02)
[2017-12-26 06:08] LABS: MD SCAN
[2017-12-26 06:26] LABS: BASOPHILS # (AUTO) 0.02 x10^3/uL (0-0.1); BASOPHILS % (AUTO) 0 % (0-1); EOSINOPHILS % (AUTO) 2 % (1-7); LYMPHOCYTES # (AUTO) 1.03 x10^3/uL (1-3.4); LYMPHOCYTES % (AUTO) 17 % (22-44); MONOCYTES # (AUTO) 0.31 x10^3/uL (0.2-0.8); MONOCYTES % (AUTO) 5 % (2-9); NEUTROPHILS # (AUTO) 4.51 x10^3/uL (1.8-6.8); NEUTROPHILS % (AUTO) 76 % (42-75)
[2017-12-26 06:33] VITALS: BP 112/49
[2017-12-26] MEDS: ALBUTEROL/IPRATROPIUM 2.5MG/0.5MG, 3 ML NPPB SCH ×5 (06:55→23:23)
[2017-12-26] MEDS: INSULIN LISPRO 100 UNITS/ML, PEN SQ-INSULIN SCH ×4 (07:00→21:35)
[2017-12-26] MEDS: SIMETHICONE 125 MG CHEW TAB PO SCH ×4 (07:00→21:35)
[2017-12-26] MEDS: FLUTICASONE NASAL SPRAY 16GM NAS SCH ×2 (09:00→21:36)
[2017-12-26] MEDS: PANTOPROZOLE 40MG TABLET PO SCH (10:02)
[2017-12-26] MEDS: FERROUS SULFATE 325 MG TABLET PO SCH (10:03)
[2017-12-26] MEDS: INSULIN GLARGINE 100 UNITS/ML, PEN SQ-INSULIN SCH (10:04)
[2017-12-26] MEDS: SODIUM CHLORIDE FLUSH 10ML SYR IVF SCH ×2 (10:06→21:36)
[2017-12-26 13:26] VITALS: BP 104/56
[2017-12-26 19:49] VITALS: BP 147/75
[2017-12-27 03:55] VITALS: BP 104/62
[2017-12-27 05:05] LABS: ALANINE AMINOTRANSFERASE 24 U/L (12-78); ANION GAP 4 mmol/L (5-15); BASOPHILS # (AUTO) 0.03 x10^3/uL (0-0.1); BASOPHILS % (AUTO) 1 % (0-1); CALCIUM 8.8 mg/dL (8.5-10.1); CHLORIDE 110 mmol/L (98-107); EOSINOPHILS # (AUTO) 0.09 x10^3/uL (0-0.4); EOSINOPHILS % (AUTO) 1 % (1-7); LYMPHOCYTES % (AUTO) 13 % (22-44); MD NO; MEAN CORPUSCULAR HEMOGLOBIN 27.3 pg (27.0-34.8); MEAN CORPUSCULAR HGB CONC 31.3 g/dL (32.4-35.8); MEAN CORPUSCULAR VOLUME 87.4 fL (80-100); MEAN PLATELET VOLUME 8.6 fL (7.4-10.4); MONOCYTES # (AUTO) 0.37 x10^3/uL (0.2-0.8); MONOCYTES % (AUTO) 6 % (2-9); NEUTROPHILS # (AUTO) 4.93 x10^3/uL (1.8-6.8); NEUTROPHILS % (AUTO) 79 % (42-75); PLATELET COUNT 262 x10^3/uL (130-400); RED BLOOD COUNT 3.83 x10^6/uL (3.82-5.3); RED CELL DISTRIBUTION WIDTH 30.6 % (9.6-15.2)
[2017-12-27 05:07] LABS: ALKALINE PHOSPHATASE 127 U/L (45-117); BILIRUBIN,TOTAL 0.6 mg/dL (0.2-1.0); TOTAL PROTEIN 6.5 g/dL (6.4-8.2)
[2017-12-27] MEDS: GUAIFENESIN 200 MG TABLET PO SCH ×4 (05:41→20:52)
[2017-12-27] MEDS: ALBUTEROL/IPRATROPIUM 2.5MG/0.5MG, 3 ML NPPB SCH ×5 (06:20→21:19)
[2017-12-27 07:14] VITALS: BP 119/69
[2017-12-27] MEDS: PANTOPROZOLE 40MG TABLET PO SCH (08:18)
[2017-12-27] MEDS: SIMETHICONE 125 MG CHEW TAB PO SCH ×4 (08:18→20:51)
[2017-12-27] MEDS: SODIUM CHLORIDE FLUSH 10ML SYR IVF SCH ×2 (08:18→20:52)
[2017-12-27] MEDS: FERROUS SULFATE 325 MG TABLET PO SCH (08:18)
[2017-12-27] MEDS: FLUTICASONE NASAL SPRAY 16GM NAS SCH ×2 (08:18→20:52)
[2017-12-27] MEDS: INSULIN GLARGINE 100 UNITS/ML, PEN SQ-INSULIN SCH (08:19)
[2017-12-27] MEDS: INSULIN LISPRO 100 UNITS/ML, PEN SQ-INSULIN SCH ×4 (08:19→20:58)
[2017-12-27 13:02] VITALS: BP 127/68
[2017-12-27] MEDS ORDERED: FUROSEMIDE 20 MG/2 ML IV ONE (15:00)
[2017-12-27 20:08] VITALS: BP 105/61
[2017-12-28 02:22] VITALS: BP 102/65
[2017-12-28] MEDS: ALBUTEROL/IPRATROPIUM 2.5MG/0.5MG, 3 ML NPPB SCH ×6 (02:34→22:00)
[2017-12-28] MEDS: GUAIFENESIN 200 MG TABLET PO SCH ×5 (05:18→20:21)
[2017-12-28 05:38] LABS: MEAN CORPUSCULAR HEMOGLOBIN 27.5 pg (27.0-34.8); MEAN CORPUSCULAR HGB CONC 31.4 g/dL (32.4-35.8); MEAN CORPUSCULAR VOLUME 87.8 fL (80-100); MEAN PLATELET VOLUME 8.4 fL (7.4-10.4); PLATELET COUNT 293 x10^3/uL (130-400); RED BLOOD COUNT 3.86 x10^6/uL (3.82-5.3); RED CELL DISTRIBUTION WIDTH 31.1 % (9.6-15.2)
[2017-12-28 05:45] LABS: ALBUMIN 3.2 g/dL (3.4-5.0); ANION GAP 9 mmol/L (5-15); CALCIUM 8.7 mg/dL (8.5-10.1); CHLORIDE 110 mmol/L (98-107); CREATININE 1.82 mg/dL (0.55-1.02)
[2017-12-28 05:58] LABS: BASOPHILS # (AUTO) 0.02 x10^3/uL (0-0.1); BASOPHILS % (AUTO) 0 % (0-1); EOSINOPHILS # (AUTO) 0.05 x10^3/uL (0-0.4); EOSINOPHILS % (AUTO) 1 % (1-7); LYMPHOCYTES # (AUTO) 0.92 x10^3/uL (1-3.4); LYMPHOCYTES % (AUTO) 16 % (22-44); MD SCAN; MONOCYTES # (AUTO) 0.32 x10^3/uL (0.2-0.8); MONOCYTES % (AUTO) 6 % (2-9); NEUTROPHILS # (AUTO) 4.46 x10^3/uL (1.8-6.8); NEUTROPHILS % (AUTO) 77 % (42-75)
[2017-12-28 07:18] VITALS: BP 114/66
[2017-12-28] MEDS: FERROUS SULFATE 325 MG TABLET PO SCH (08:16)
[2017-12-28] MEDS: FLUTICASONE NASAL SPRAY 16GM NAS SCH ×2 (08:16→20:19)
[2017-12-28] MEDS: PANTOPROZOLE 40MG TABLET PO SCH (08:16)
[2017-12-28] MEDS: SIMETHICONE 125 MG CHEW TAB PO SCH ×4 (08:16→20:19)
[2017-12-28] MEDS: SODIUM CHLORIDE FLUSH 10ML SYR IVF SCH ×2 (08:17→20:19)
[2017-12-28] MEDS: INSULIN GLARGINE 100 UNITS/ML, PEN SQ-INSULIN SCH (08:20)
[2017-12-28] MEDS: INSULIN LISPRO 100 UNITS/ML, PEN SQ-INSULIN SCH ×5 (08:20→23:10)
[2017-12-28] MEDS: TORSEMIDE 20 MG TABLET PO SCH (11:24)
[2017-12-28 14:15] VITALS: BP 128/70
[2017-12-28 19:58] VITALS: BP 122/74
[2017-12-29 01:48] VITALS: BP 108/58
[2017-12-29 05:49] LABS: ALBUMIN 2.9 g/dL (3.4-5.0); ANION GAP 5 mmol/L (5-15); CALCIUM 8.7 mg/dL (8.5-10.1); CHLORIDE 112 mmol/L (98-107)
[2017-12-29 05:52] LABS: ALANINE AMINOTRANSFERASE 25 U/L (12-78); ALKALINE PHOSPHATASE 128 U/L (45-117); BILIRUBIN,TOTAL 0.9 mg/dL (0.2-1.0); CREATININE 1.96 mg/dL (0.55-1.02); TOTAL PROTEIN 6.6 g/dL (6.4-8.2)
[2017-12-29 05:53] LABS: MEAN CORPUSCULAR HEMOGLOBIN 27.5 pg (27.0-34.8); MEAN CORPUSCULAR HGB CONC 31.1 g/dL (32.4-35.8); MEAN CORPUSCULAR VOLUME 88.2 fL (80-100); MEAN PLATELET VOLUME 8.5 fL (7.4-10.4); PLATELET COUNT 283 x10^3/uL (130-400); RED BLOOD COUNT 3.82 x10^6/uL (3.82-5.3); RED CELL DISTRIBUTION WIDTH 30.4 % (9.6-15.2)
[2017-12-29] MEDS: GUAIFENESIN 200 MG TABLET PO SCH ×4 (06:00→20:37)
[2017-12-29 06:13] LABS: BASOPHILS # (AUTO) 0.04 x10^3/uL (0-0.1); BASOPHILS % (AUTO) 1 % (0-1); EOSINOPHILS # (AUTO) 0.09 x10^3/uL (0-0.4); EOSINOPHILS % (AUTO) 2 % (1-7); LYMPHOCYTES # (AUTO) 0.86 x10^3/uL (1-3.4); LYMPHOCYTES % (AUTO) 15 % (22-44); MD MORPH REVIEW ONLY; MONOCYTES # (AUTO) 0.38 x10^3/uL (0.2-0.8); MONOCYTES % (AUTO) 7 % (2-9); NEUTROPHILS # (AUTO) 4.22 x10^3/uL (1.8-6.8); NEUTROPHILS % (AUTO) 76 % (42-75)
[2017-12-29 06:14] LABS: ANISOCYTOSIS 1+
[2017-12-29 06:16] LABS: HYPOCHROMIA 1+; MICROCYTOSIS 1+
[2017-12-29 06:17] LABS: <PLATELET ESTIMATE> ADEQUATE; <PLT MORPHOLOGY> NORMAL PLT MORPH
[2017-12-29 07:27] VITALS: BP 127/72
[2017-12-29] MEDS: SIMETHICONE 125 MG CHEW TAB PO SCH ×4 (07:38→20:38)
[2017-12-29] MEDS: INSULIN GLARGINE 100 UNITS/ML, PEN SQ-INSULIN SCH (07:38)
[2017-12-29] MEDS: FERROUS SULFATE 325 MG TABLET PO SCH (07:38)
[2017-12-29] MEDS: INSULIN LISPRO 100 UNITS/ML, PEN SQ-INSULIN SCH ×4 (07:38→21:00)
[2017-12-29] MEDS: PANTOPROZOLE 40MG TABLET PO SCH (07:38)
[2017-12-29] MEDS: TORSEMIDE 20 MG TABLET PO SCH (07:42)
[2017-12-29] MEDS: ALBUTEROL/IPRATROPIUM 2.5MG/0.5MG, 3 ML NPPB SCH ×5 (08:07→22:53)
[2017-12-29] MEDS: SODIUM CHLORIDE FLUSH 10ML SYR IVF SCH ×2 (09:51→20:37)
[2017-12-29] MEDS: FLUTICASONE NASAL SPRAY 16GM NAS SCH ×2 (09:51→20:37)
[2017-12-29 14:15] VITALS: BP 138/80
[2017-12-29] MEDS ORDERED: MORPHINE SULFATE 4 MG/ML, 1ML IVPush PRN (17:30)
[2017-12-29 20:00] VITALS: BP 113/60
[2017-12-30 03:10] VITALS: BP 118/73
[2017-12-30 05:19] VITALS: BP 112/65
[2017-12-30] MEDS: GUAIFENESIN 200 MG TABLET PO SCH ×4 (06:00→21:12)
[2017-12-30 06:41] LABS: ALANINE AMINOTRANSFERASE 24 U/L (12-78); ALBUMIN 3.2 g/dL (3.4-5.0); ANION GAP 6 mmol/L (5-15); CALCIUM 9.1 mg/dL (8.5-10.1); CHLORIDE 111 mmol/L (98-107); CREATININE 1.88 mg/dL (0.55-1.02)
[2017-12-30 06:44] LABS: ALKALINE PHOSPHATASE 130 U/L (45-117); BILIRUBIN,TOTAL 0.8 mg/dL (0.2-1.0)
[2017-12-30] MEDS: ALBUTEROL/IPRATROPIUM 2.5MG/0.5MG, 3 ML NPPB SCH ×5 (07:30→23:00)
[2017-12-30 08:00] VITALS: BP 154/81
[2017-12-30] MEDS: FLUTICASONE NASAL SPRAY 16GM NAS SCH ×2 (09:00→21:00)
[2017-12-30] MEDS: FERROUS SULFATE 325 MG TABLET PO SCH (10:05)
[2017-12-30] MEDS: PANTOPROZOLE 40MG TABLET PO SCH (10:06)
[2017-12-30] MEDS: SIMETHICONE 125 MG CHEW TAB PO SCH ×4 (10:29→21:12)
[2017-12-30] MEDS: TORSEMIDE 20 MG TABLET PO SCH (10:30)
[2017-12-30] MEDS: INSULIN LISPRO 100 UNITS/ML, PEN SQ-INSULIN SCH ×4 (10:31→21:12)
[2017-12-30] MEDS: INSULIN GLARGINE 100 UNITS/ML, PEN SQ-INSULIN SCH (10:32)
[2017-12-30] MEDS: SODIUM CHLORIDE FLUSH 10ML SYR IVF SCH ×2 (10:34→21:13)
[2017-12-30 10:48] VITALS: BP 136/79
[2017-12-30] MEDS ORDERED: FERR-51 PO (14:15)
[2017-12-30] MEDS ORDERED: INSU100I13 SQ-INSULIN (14:15)
[2017-12-30] MEDS ORDERED: PANT40TA5 PO (14:15)
[2017-12-30] MEDS ORDERED: Simethicone PO (14:15)
[2017-12-30] MEDS ORDERED: TORS20TA PO (14:15)
[2017-12-30] MEDS ORDERED: ALPR0.254 PO (14:25)
[2017-12-30 14:47] VITALS: BP 107/65
[2017-12-30 18:51] VITALS: BP 98/60
[2017-12-31 02:46] VITALS: BP 125/70
[2017-12-31 05:03] LABS: CALCIUM 8.7 mg/dL (8.5-10.1); CHLORIDE 110 mmol/L (98-107)
[2017-12-31 05:09] LABS: ALANINE AMINOTRANSFERASE 21 U/L (12-78); ALKALINE PHOSPHATASE 123 U/L (45-117); ANION GAP 6 mmol/L (5-15); BILIRUBIN,TOTAL 0.6 mg/dL (0.2-1.0); CREATININE 1.93 mg/dL (0.55-1.02); TOTAL PROTEIN 6.5 g/dL (6.4-8.2)
[2017-12-31] MEDS: GUAIFENESIN 200 MG TABLET PO SCH ×3 (06:00→16:00)
[2017-12-31] MEDS: INSULIN LISPRO 100 UNITS/ML, PEN SQ-INSULIN SCH ×3 (07:00→16:18)
[2017-12-31] MEDS: ALBUTEROL/IPRATROPIUM 2.5MG/0.5MG, 3 ML NPPB SCH ×4 (08:10→18:29)
[2017-12-31 08:21] VITALS: BP 120/68
[2017-12-31] MEDS: FLUTICASONE NASAL SPRAY 16GM NAS SCH (08:28)
[2017-12-31] MEDS: FERROUS SULFATE 325 MG TABLET PO SCH (08:36)
[2017-12-31] MEDS: INSULIN GLARGINE 100 UNITS/ML, PEN SQ-INSULIN SCH (08:36)
[2017-12-31] MEDS: SIMETHICONE 125 MG CHEW TAB PO SCH ×3 (08:36→16:11)
[2017-12-31] MEDS: TORSEMIDE 20 MG TABLET PO SCH (08:36)
[2017-12-31] MEDS: PANTOPROZOLE 40MG TABLET PO SCH (08:36)
[2017-12-31] MEDS: SODIUM CHLORIDE FLUSH 10ML SYR IVF SCH (08:37)
[2017-12-31 13:15] VITALS: BP 108/66
[2017-12-31 18:52] VITALS: BP 112/68
== END 2017-12-31 20:29 | disposition short-term general hospital (02) | DRG 286 ==
LOC: ED 16:32 → 4EST 17:04 → 5SO 12-15 14:23
PROVIDERS: ADMIT Internal Medicine; ATTEND Internal Medicine
PROC: 30233N1 Transfusion of Nonautologous Red Blood Cells into Peripheral Vein, Percutaneous Approach (ICD-10-PCS; principal; 2017-12-11)
PROC: 0DB78ZX Excision of Stomach, Pylorus, Via Natural or Artificial Opening Endoscopic, Diagnostic (ICD-10-PCS; 2017-12-13)
PROC: 0DBN8ZZ Excision of Sigmoid Colon, Via Natural or Artificial Opening Endoscopic (ICD-10-PCS; 2017-12-13)
PROC: 4A023N8 Measurement of Cardiac Sampling and Pressure, Bilateral, Percutaneous Approach (ICD-10-PCS; 2017-12-20)
PROC: B2131ZZ Fluoroscopy of Multiple Coronary Artery Bypass Grafts using Low Osmolar Contrast (ICD-10-PCS; 2017-12-20)
PROC: B2111ZZ Fluoroscopy of Multiple Coronary Arteries using Low Osmolar Contrast (ICD-10-PCS; 2017-12-20)
DX: T82.857A Stenosis of other cardiac prosthetic devices, implants and grafts, initial encounter (principal); K22.11 Ulcer of esophagus with bleeding; I50.43 Acute on chronic combined systolic (congestive) and diastolic (congestive) heart failure; J96.20 Acute and chronic respiratory failure, unspecified whether with hypoxia or hypercapnia; K29.61 Other gastritis with bleeding; D62 Acute posthemorrhagic anemia; J44.1 Chronic obstructive pulmonary disease with (acute) exacerbation; Q43.8 Other specified congenital malformations of intestine; N17.9 Acute kidney failure, unspecified; I13.0 Hypertensive heart and chronic kidney disease with heart failure and stage 1 through stage 4 chronic kidney disease, or unspecified chronic kidney disease; E44.0 Moderate protein-calorie malnutrition; K63.5 Polyp of colon; K59.00 Constipation, unspecified; F41.9 Anxiety disorder, unspecified; D63.1 Anemia in chronic kidney disease; F17.210 Nicotine dependence, cigarettes, uncomplicated; E11.649 Type 2 diabetes mellitus with hypoglycemia without coma; E11.22 Type 2 diabetes mellitus with diabetic chronic kidney disease; N18.3 Chronic kidney disease, stage 3 (moderate); I27.20 Pulmonary hypertension, unspecified; Z99.81 Dependence on supplemental oxygen; I25.10 Atherosclerotic heart disease of native coronary artery without angina pectoris; I08.1 Rheumatic disorders of both mitral and tricuspid valves; Y83.1 Surgical operation with implant of artificial internal device as the cause of abnormal reaction of the patient, or of later complication, without mention of misadventure at the time of the procedure; I95.9 Hypotension, unspecified; E78.5 Hyperlipidemia, unspecified; Z88.2 Allergy status to sulfonamides; Z88.5 Allergy status to narcotic agent; Z88.9 Allergy status to unspecified drugs, medicaments and biological substances; Z68.24 Body mass index [BMI] 24.0-24.9, adult; Z95.2 Presence of prosthetic heart valve; Z95.1 Presence of aortocoronary bypass graft; Z98.51 Tubal ligation status; Z90.49 Acquired absence of other specified parts of digestive tract; Z80.1 Family history of malignant neoplasm of trachea, bronchus and lung; Z79.82 Long term (current) use of aspirin; Z79.4 Long term (current) use of insulin; Z71.6 Tobacco abuse counseling
CPT/HCPCS: 36415; 93461; 99285; J7613; J7620; 36430; 71045; 76770; 80048; 80053; 80069; 81001; 82040; 82306; 82550; 82570; 82947; 82962; 83036; 83540; 83550; 83735; 83880; 83970; 84100; 84156; 84436; 84439; 84443; 84481; 84484; 84550; 85014; 85018; 85025; 85610; 85730; 86850; 86900; 86923; 87324; 88305; 93005; 93306; 93970; 93978; 94640; 99156; 99157; C1769; C1894; J0583; J1644; J1756; J1940; J2250; J2405; J2704; J3010; J3490; J1815; P9016; Q9967